=== PATIENT | female | born 1980 | race Caucasian/White ===

== ENCOUNTER 2019-01-23 21:14 | Emergency (ER) | payer MEDICAID, OTHER ==
--- NOTE | 2019-01-23 21:54 | EDPHY ---
General Time Seen by Provider: 01/23/19 21:25 Narrative: CLINICAL IMPRESSION: Left lower leg hematoma ASSESSMENT/PLAN: 38-year-old female presents to the emergency department 2 weeks after falling approximately 4 ft off a deck landing on the left lower leg. She has had a area of persistent swelling since that time that is not painful, without erythema, warmth, lymphangitis, or significant tenderness. Patient has been ambulatory without pain. X-rays do not show underlying fracture, bony abnormality or obvious soft tissue mass. Ultrasound reveals a probable muscle belly hematoma. Patient did not wish to have this incised in the ED. Compression wrap applied and warm compresses advised. I have provided her primary care and general surgery follow-up. Warning signs return to ED sooner discussed discharge. DIFFERENTIAL DX: Differential includes but not limited to abscess, muscle belly hematoma, fracture, soft tissue mass ED PROCEDURES: See lab and/or imaging results below ED COURSE: 10:30 P.M.: Ultrasound discussed with radiologist, no evidence of soft tissue mass. 4.6 x 4.9 hematoma. X-rays reviewed by myself with no evidence of acute fracture. CHIEF COMPLAINT: Left leg swelling HPI: 38-year-old female presents to the emergency department with left lower leg swelling. Patient reports approximately 2 weeks ago she was partying with friends on a deck and fell approximately 4 ft on to a lower wooden deck onto the left leg. She almost immediately developed some swelling to the left lateral leg but denies any open wound or abrasion. She has had persistent swelling to the left lower leg over the last 2 weeks and reports "a ac/dc rewinder friend of mine concern me that I might be developing a blood infection so I came to the ED". She reports no fevers, chills, numbness or loss of sensation to the leg. She has been walking on the leg. She initially had some bruising and swelling to the left ankle which resolved. No prior left leg injury or surgery. She has not seen anyone for this injury PAST MEDICAL HISTORY: History of pelvic fracture no other significant past medical history See triage summary and nurse notes for addition applicable history REVIEW OF SYSTEMS: A full 10 point review of systems was negative except for those mentioned in HPI. PHYSICAL EXAM: General Appearance: Alert, oriented, appropriate, cooperative, NAD, well hydrated, non-toxic appearing, VSS, no hypoxia. Respiratory: There are no retractions, lungs are clear to auscultation. Cardiac: Regular rate and rhythm, no murmurs or gallops. Skin: Warm, dry, no rashes, no nodules on palpation. Musculoskeletal: 3.5 cm raised, skin colored, non erythematous, mass to left lateral lower leg. No associated abrasion or open wound. No overlying warmth, lymphangitis, crepitus. Distal neurovascular exam intact. Full range of motion of knee and ankle. No evidence of compartment syndrome MEDICAL DECISION MAKING: Patient was seen independently. Secondary supervising physician at time of evaluation was: Dr. Barrow. Diagnosis: Left leg hematoma. New, requires workup Summary: See Assessment and Plan for summary of ED visit Independent visualization of images, tracing, or specimens: Yes. Discussed patient with another provider: Radiology Patient Progress: Stable for discharge. - Diagnostics Imaging Results: Imaging Impressions Extremity Ultrasound 01/23/19 21:46 Impression: Probable left proximal lateral calf superficial hematoma measuring 4.9 x 4.6 x 0.9 cm. Findings and recommendations discussed with Emergency Department physician, Navid Bernstein at 22:22 hour, 01/23/2019. Final report concurs with initial preliminary interpretation. Tibia/Fibula X-Ray 01/23/19 21:46 Impression: No fracture of the left tibia or fibula. Findings and recommendations discussed with Emergency Department physicianNavid at 22:23 hour, 01/23/2019. Final report concurs with initial preliminary interpretation. - History Smoking Status: Current some day smoker - Objective Vital Signs: Initial Vital Signs Temperature (C) 36.7 C 01/23/19 21:18 Heart Rate 75 01/23/19 21:18 Respiratory Rate 18 01/23/19 21:18 Blood Pressure 114/71 01/23/19 21:18 O2 Sat (%) 96 01/23/19 21:18 O2 Delivery Mode Room Air Allergies/Adverse Reactions: No Known Allergies Allergy (Unverified 03/31/18 20:34) Home Medications: Medication Instructions Recorded Amoxicillin Trihydrate [Amoxil] 1,000 mg PO DAILY 9 Days cap 03/31/18 Dexamethasone [Decadron 4 MG (*)] 8 mg PO ONCE #2 tab 03/31/18 Departure - Departure Disposition: Home, Routine, Self-Care Clinical Impression: Hematoma of lower leg Condition: Good Instructions: Hematoma (ED) Additional Instructions: DISCHARGE INSTRUCTIONS FROM YOUR DOCTOR Thank you for visiting our emergency department today. You were treated by a physician telecom assistant today and your case was reviewed with our ED Attending physician. Please keep in mind that discharge from the emergency department does not mean that there is nothing wrong - it simply means that we have not identified an emergency condition that requires further evaluation or treatment in the hospital. You should always plan to follow up with primary care for re- evaluation of your condition in the next 2-3 days. If you have been referred to a specialist, please call as soon as possible (today or tomorrow) to schedule your follow up appointment at the appropriate time. YOU HAVE NO BROKEN BONES IDENTIFIED ON X-RAY OF THE LEG. ULTRASOUND SHOWS A HEMATOMA. THIS WILL TAKE SOME TIME TO RESOLVE. PLEASE APPLY A PRESSURE DRESSING TO THE AREA AND WARM COMPRESSES. PLEASE FOLLOW-UP WITH PRIMARY CARE IN GENERAL SURGERY OF SWELLING PERSISTS. RETURN TO THE EMERGENCY DEPARTMENT FOR SIGNIFICANT SWELLING, REDNESS OR WARMTH OVER THE AREA, RED STREAKS UPPER DOWN THE LEG, FEVERS GREATER THAN 100.4, SEVERE LEG PAIN OR ANY OTHER CONCERNS. People present with illnesses and injuries in different ways, and it is always possible that we have missed something. You may always return for re-evaluation if symptoms worsen or if they are not improving or if you develop new/different symptoms. Again, thank you for choosing our emergency department. We hope that you feel better. Referrals: NONE *PRIMARY CARE P,. [Primary Care Provider] - As per Instructions [facility],. [Clinic] - 2-3 days, call for appt. Ozzy Dickey MD [Medical Doctor] - 2-3 days without fail
[2019-01-23 22:42] VITALS: BP 111/70
== END 2019-01-23 22:42 | disposition home or self-care (01) ==
DX: S80.12XA Contusion of left lower leg, initial encounter (principal); W17.89XA Other fall from one level to another, initial encounter; Y92.007 Garden or yard of unspecified non-institutional (private) residence as the place of occurrence of the external cause